=== PATIENT | male | born 1995 ===

== ENCOUNTER 2021-10-26 06:39 | Emergency (ER) | payer OTHER ==
[2021-10-26] MEDS ORDERED: TETANUS,DIPH,PERTUSS(ACELL) VACCINE 0.5 ML SYRINGE IM ONE (08:50)
[2021-10-26 09:56] LABS: Basophils % (Auto) 0.8 % (0.0-1.8); Eosinophils # (Auto) 0.2 K/mm3 (0.0-0.4); Eosinophils % (Auto) 3.7 % (0.0-4.3); Hematocrit 43.9 % (35.5-45.6); Hemoglobin 14.9 gm/dl (11.8-15.2); Lymphocytes # (Auto) 1.3 K/mm3 (1.2-5.4); Lymphocytes % (Auto) 21.7 % (13.4-35.0); Mean Corpuscular HGB Conc 34 % (32-34); Mean Corpuscular Volume 91 fl (84-94); Monocytes # (Auto) 0.3 K/mm3 (0.0-0.8); Monocytes % (Auto) 5.6 % (0.0-7.3); Platelet Count 291 K/mm3 (140-440); Red Blood Count 4.81 M/mm3 (3.65-5.03); Red Cell Distribution Width 13.2 % (13.2-15.2)
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
[2021-10-26 10:03] LABS: Alanine Aminotransferase 33 units/L (7-56); Albumin 4.8 g/dL (3.9-5); BUN/Creatinine Ratio 11; Blood Urea Nitrogen 9 mg/dL (9-20); Calcium 9.5 mg/dL (8.4-10.2); Hemolysis Index 32
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
[2021-10-26 10:52] LABS: Amphetamine Screen,Urine Negative; Benzodiazepines Screen,Urine Negative; Cocaine Screen,Urine Negative; Methadone Screen,Urine Negative; Opiate Screen,Urine Negative
[2021-10-26 10:57] LABS: Color,Urine Yellow (Yellow)
[2021-10-26 10:58] LABS: Mucus,Urine FEW /HPF
[2021-10-26 11:05] LABS: Cannabinoid Screen,Urine Positive
[2021-10-26 11:25] VITALS: BP 145/80
== END 2021-10-26 11:25 ==
LOC: ED 06:39
DX: S01.01XS Laceration without foreign body of scalp, sequela (principal); Z79.899 Other long term (current) drug therapy; V89.2XXA Person injured in unspecified motor-vehicle accident, traffic, initial encounter; Y93.89 Activity, other specified; Y92.89 Other specified places as the place of occurrence of the external cause; Y99.8 Other external cause status
CPT/HCPCS: 36415; 70450; 72125; 80053; 80307; 80320; 81001; 85025; 90471; 90715; 99284; G0480

== ENCOUNTER 2021-11-05 13:41 | Emergency (ER) | payer OTHER ==
[2021-11-05 14:06] VITALS: BP 128/78
--- NOTE | 2021-11-05 16:14 | Emergency Department Report ---
Suture/Staple Removal - [facility] Chief Complaint: Medical Clearance Stated Complaint: DANIEL REMOVAL Time Seen by Provider: 11/05/21 15:57 ED Review of Systems ROS: Stated complaint: DANIEL REMOVAL Other details as noted in HPI Comment: All other systems reviewed and negative Constitutional: denies: fever ED Past Medical Hx - Social History Smoking Status: Current Every Day Smoker Substance Use Type: Alcohol - Medications Home Medications: Home Medications Medication Instructions Recorded Confirmed Last Taken Type Cyclobenzaprine [Flexeril] 10 mg PO QHS PRN #10 tab 10/26/21 Unknown Rx Naproxen 500 mg PO Q12H PRN #14 tab 10/26/21 Unknown Rx cephALEXin [Keflex] 500 mg PO Q8HR #21 cap 10/26/21 Unknown Rx Suture Removal Exam - Exam General: Vital signs noted. No distress. Alert and acting appropriately. Wound: No Pathologic Erythema, No Tenderness, No Drainage, No Pus, No Wound Dehiscence Other Systems: All other systems reviewed and are unremarkable. ED Course Vital Signs 11/05/21 14:05 Temperature 97 F L Pulse Rate 60 Respiratory 18 Rate Blood Pressure 128/78 [Right] O2 Sat by Pulse 99 Oximetry - Procedure Description Procedures done: Staple removal: 5 daniel noted to healed scalp laceration. No erythema, edema, or drainage noted. 5 daniel removed, patient tolerated well. ED Recheck MDM - Differential Diagnosis Suture/Staple Removal Critical care attestation.: If time is entered above; I have spent that time in minutes in the direct care of this critically ill patient, excluding procedure time. ED Disposition Clinical Impression: Removal of staple Disposition: 01 HOME / SELF CARE / HOMELESS Is pt being admited?: No Does the pt Need Aspirin: No Condition: Stable Instructions: Wound Closure Removal, Care After Additional Instructions: Follow-up to primary care provider as needed. Return to the emergency department as needed. Referrals: GAL CORBETT MD [Primary Care Provider] - 3-5 Days Time of Disposition: 16:13
== END 2021-11-06 20:00 | disposition home or self-care (01) ==
LOC: ED 13:41
DX: S01.01XD Laceration without foreign body of scalp, subsequent encounter (principal); X58.XXXD Exposure to other specified factors, subsequent encounter
CPT/HCPCS: 99281